=== PATIENT | female | born 1970 | race Caucasian/White ===

== ENCOUNTER 2020-03-22 11:07 | Emergency (ER) | payer OTHER, SELFPAY ==
[~2020-03-22] VITALS: Ht 157.5 cm; Wt 72.6 kg
[2020-03-22 11:22] VITALS: BP_SYST 116
--- NOTE | 2020-03-22 13:05 | NUR ---
Patient triaged and placed in waiting room. VSS and patient appears in no acute distress at this time. Accompanied by self , awaiting available bed, and MD notified of need for MSE.
--- NOTE | 2020-03-22 13:07 | NUR ---
Pt brought by self , A&Ox4, pt presents to ER with cough , congestion , bodyaches, skin pink and warm, cap refill <3, VSS.
--- NOTE | 2020-03-22 13:44 | NUR ---
Dr Fitch evaluating patient in the tent
[2020-03-22 14:20] VITALS: BP_SYST 116
--- NOTE | 2020-03-22 14:20 | NUR ---
Patient given written and verbal discharge instructions and verbalizes understanding. ER MD discussed with patient the results and treatment provided. Patient in stable condition. ID arm band removed. Rx of Marcella Freeman given. Patient educated on pain management and to follow up with PMD. Pain Scale 0. Opportunity for questions provided and answered. Medication side effect fact sheet provided.
== END 2020-03-22 14:20 | disposition home or self-care (01) ==
LOC: SED 11:07
DX: U07.1 COVID-19 (principal)
CPT/HCPCS: 99283